=== PATIENT | male | born 1950 | race Caucasian/White ===

== ENCOUNTER → 2017-03-27 | Outpatient (CLI) | payer MEDICARE | END | disposition home or self-care (01) | LOC: PCVCCLINIC 13:30 | PROVIDERS: ATTEND Internal Medicine | DX: E78.00 Pure hypercholesterolemia, unspecified (principal); I10 Essential (primary) hypertension | CPT/HCPCS: 80061 ==

== ENCOUNTER → 2018-07-04 | Outpatient (CLI) | payer OTHER | END | disposition home or self-care (01) | LOC: PCVCCLINIC 15:09 | PROVIDERS: ATTEND Internal Medicine | DX: I10 Essential (primary) hypertension (principal); E78.5 Hyperlipidemia, unspecified; F06.4 Anxiety disorder due to known physiological condition; R60.0 Localized edema; Z79.82 Long term (current) use of aspirin | CPT/HCPCS: 80061; 93005; G0463 ==

== ENCOUNTER → 2018-08-20 | Outpatient (CLI) | payer OTHER ==
--- NOTE | 2018-08-21 13:22 | PCVCIMAG ---
APPROVED REPORT Study performed: 08/20/2018 12:23:09 EXAM: Comprehensive 2D, Doppler, and color-flow Echocardiogram Patient Location: Echo lab Room #: 3Status: routine BSA: 2.11 HR: 68 bpmBP: 120/72 mmHg Rhythm: NSR Other Information Study Quality: Adequate Risk Factors: Cardiac Risk Factors: HTN, Hyperlipidemia Indications Hypertension/HDD peripheral edema 2D Dimensions IVSd: 9.00 (7-11mm)LVOT Diam: 20.89 (18-24mm) LVDd: 45.99 mm PWd: 8.22 (7-11mm)Ascending Ao: 30.22 (22-36mm) LVDs: 26.44 (25-40mm) Left Atrium: 25.55 (27-40mm) Aortic Root: 24.15 mm LV Single Plane 4CH: 51.88 % LV Single Plane 2CH: 56.92 % Volumes Left Atrial Volume (Systole) Single Plane 4CH: 37.82 mLSingle Plane 2CH: 40.73 mL Biplane LA Volume: 42.00 mLLA ESV Index: 20.00 mL/m2 Aortic Valve AoV Peak Russell.: 1.22 m/s AO Peak Gr.: 5.97 mmHg Mitral Valve E/A Ratio: 1.0 MV Decel. Time: 187.11 ms MV E Max Russell.: 0.65 m/s MV A Russell.: 0.68 m/s MV PHT: 54.26 ms IVRT: 100.35 ms TDI E/Lateral E': 8.13E/Medial E': 8.13 Medial E' Russell.: 0.08 m/s Lateral E' Russell.: 0.08 m/s Pulmonary Valve PV Peak Russell.: 1.22 m/sPV Peak Gr.: 5.97 mmHg Pulmonary Vein P Vein S: 0.43 m/sP Vein A: 0.25 m/s P Vein D: 0.37 m/sP Vein A Dur.: 65.7 msec P Vein S/D Ratio: 1.16 Tricuspid Valve TV Vmax: 0.48 m/s Left Ventricle The left ventricle is normal size. There is normal LV segmental wall motion. There is normal left ventricular wall thickness. Left ventricular systolic function is low normal. LVEF is 50-55%. The left ventricular diastolic function is normal. Right Ventricle The right ventricle is normal size. The right ventricular systolic function is normal. Atria The left atrium size is normal. The right atrium size is normal. Aortic Valve The aortic valve is normal in structure. No aortic regurgitation is present. There is no aortic valvular stenosis. Mitral Valve The mitral valve is normal in structure. There is no mitral valve regurgitation noted. No evidence of mitral valve stenosis. Tricuspid Valve The tricuspid valve is normal in structure. There is no tricuspid valve regurgitation noted. No pulmonary hypertension. Pulmonic Valve The pulmonary valve is normal in structure. There is no pulmonic valvular regurgitation. Great Vessels The aortic root is normal in size. Aortic arch is not well visualized. The ascending aorta is normal in size. IVC is normal in size and collapses >50% with inspiration. Pericardium There is no pericardial effusion. There is no pleural effusion. <Conclusion> The left ventricle is normal size. LVEF is 50-55%. The aortic valve is normal in structure. The mitral valve is normal in structure. The tricuspid valve is normal in structure. The pulmonary valve is normal in structure. There is no pericardial effusion. There is no pleural effusion.
== END | disposition home or self-care (01) ==
LOC: PCVCIMAG 10:52
PROVIDERS: ATTEND Internal Medicine
DX: I10 Essential (primary) hypertension (principal); R60.0 Localized edema
CPT/HCPCS: 93306

== ENCOUNTER → 2018-12-26 | Outpatient (CLI) | payer MEDICARE, OTHER | END | disposition home or self-care (01) | LOC: PCVCCLINIC 13:40 | PROVIDERS: ATTEND Internal Medicine | DX: I10 Essential (primary) hypertension (principal); E78.5 Hyperlipidemia, unspecified; G47.30 Sleep apnea, unspecified; R60.0 Localized edema; E78.00 Pure hypercholesterolemia, unspecified | CPT/HCPCS: 36415; 80061; 93005; G0463 ==

== ENCOUNTER → 2019-07-07 | Outpatient (CLI) | payer MEDICARE | END | disposition home or self-care (01) | LOC: PCVCCLINIC 14:45 | PROVIDERS: ATTEND Internal Medicine | DX: I10 Essential (primary) hypertension (principal); E78.5 Hyperlipidemia, unspecified; G47.37 Central sleep apnea in conditions classified elsewhere; E78.00 Pure hypercholesterolemia, unspecified; M10.9 Gout, unspecified; Z79.82 Long term (current) use of aspirin | CPT/HCPCS: 36415; 80061; 93005; G0463 ==

== ENCOUNTER → 2019-07-11 | Outpatient (CLI) | payer MEDICARE ==
--- NOTE | 2019-07-11 11:31 | PCVCIMAG ---
APPROVED REPORT Study performed: 07/11/2019 07:51:32 EXAM: Comprehensive 2D, Doppler, and color-flow Echocardiogram Patient Location: Echo lab Room #: 2Status: routine BSA: 2.02 HR: 64 bpmBP: 118/76 mmHg Rhythm: NSR Other Information Study Quality: Adequate Risk Factors: Cardiac Risk Factors: Dyslipidemia, HTN, OLIVIA Indications Hypertension/HDD 2D Dimensions IVSd: 8.69 (7-11mm)LVOT Diam: 20.70 (18-24mm) LVDd: 47.61 mm PWd: 6.83 (7-11mm)Ascending Ao: 31.34 (22-36mm) LVDs: 30.81 (25-40mm) Left Atrium: 32.03 (27-40mm) Aortic Root: 21.76 mm LV Single Plane 4CH: 56.47 % LV Single Plane 2CH: 55.72 % Biplane EF: 57.0 % Volumes Left Atrial Volume (Systole) Single Plane 4CH: 30.19 mLSingle Plane 2CH: 26.34 mL Biplane LA Volume: 29.00 mLLA ESV Index: 14.00 mL/m2 Aortic Valve AoV Peak Russell.: 1.34 m/s AO Peak Gr.: 7.14 mmHgLVOT Max P.33 mmHg LVOT Max V: 1.04 m/s EULALIO Vmax: 2.62 cm2 Mitral Valve E/A Ratio: 1.0 MV Decel. Time: 163.01 ms MV E Max Russell.: 0.83 m/s MV A Russell.: 0.86 m/s IVRT: 62.28 ms TDI E/Lateral E': 10.38E/Medial E': 10.38 Medial E' Russell.: 0.08 m/s Lateral E' Russell.: 0.08 m/s Pulmonary Valve PV Peak Gr.: 3.30 mmHg Pulmonary Vein P Vein S: 0.49 m/sP Vein A: 0.30 m/s P Vein D: 0.30 m/sP Vein A Dur.: 93.4 msec P Vein S/D Ratio: 1.63 Tricuspid Valve TR Peak Russell.: 2.25 m/s TR Peak Gr.: 20.25 mmHg TV Vmax: 0.58 m/sPA Pressure: 27.00 mmHg Left Ventricle The left ventricle is normal size. There is normal LV segmental wall motion. There is normal left ventricular wall thickness. Left ventricular systolic function is normal. The left ventricular ejection fraction is within the normal range. LVEF is 55-60%. Right Ventricle The right ventricle is normal size. The right ventricular systolic function is normal. Atria The left atrium size is normal. The right atrium size is normal. Aortic Valve Aortic valve is trileaflet. The aortic valve is normal in structure and function. No aortic regurgitation is present. There is no aortic valvular stenosis. Mitral Valve The mitral valve is normal in structure. There is no mitral valve regurgitation noted. No evidence of mitral valve stenosis. Tricuspid Valve The tricuspid valve is normal in structure. Trace tricuspid regurgitation. No pulmonary hypertension. Pulmonic Valve The pulmonary valve is normal in structure. Trace pulmonic regurgitation. Great Vessels The aortic root is normal in size. The ascending aorta is normal in size. Aortic arch is normal in caliber. IVC is normal in size and collapses >50% with inspiration. Pericardium There is no pericardial effusion. There is no pleural effusion. <Conclusion> The left ventricle is normal size. LVEF is 55-60%. Aortic valve is trileaflet. The aortic valve is normal in structure and function. The mitral valve is normal in structure. The tricuspid valve is normal in structure. Trace tricuspid regurgitation. No pulmonary hypertension. The pulmonary valve is normal in structure. Trace pulmonic regurgitation. There is no pericardial effusion.
== END | disposition home or self-care (01) ==
LOC: PCVCIMAG 07:51
PROVIDERS: ATTEND Internal Medicine
DX: Z02.4 Encounter for examination for driving license (principal); G47.30 Sleep apnea, unspecified; I10 Essential (primary) hypertension; L40.9 Psoriasis, unspecified; F06.4 Anxiety disorder due to known physiological condition; E78.5 Hyperlipidemia, unspecified
CPT/HCPCS: 93306